=== PATIENT | female | born 1970 | race Caucasian/White ===

== ENCOUNTER 2020-05-09 11:47 | Day surgery (SDC) | payer MEDICAID ==
[~2020-05-09] VITALS: Ht 175.3 cm; Wt 128.2 kg
[~2020-05-09 11:47] MED LIST: SODIUM CHLORIDE 0.9% 1,000 ML IV ONE; SODIUM CHLORIDE 0.9% 1,000 ML ONE
[2020-05-09 12:30] LABS: COVID AG,FIA SOURCE NASOPHARYNGEAL
[2020-05-09] MEDS ORDERED: ESCI20TA87 PO (15:02)
[2020-05-09] MEDS ORDERED: MAGOX PO (15:02)
[2020-05-09] MEDS ORDERED: CHOL200016 PO (15:02)
[2020-05-09] MEDS ORDERED: CEFX2I IM (15:02)
[2020-05-09] MEDS ORDERED: VITA15LO2 PO (15:02)
[2020-05-09] MEDS ORDERED: BUSP10TA23 PO (15:02)
[2020-05-09] MEDS ORDERED: BIOT1TAB6 PO (15:02)
[2020-05-09] MEDS ORDERED: TURM500C4 PO (15:02)
[2020-05-09] MEDS ORDERED: NICO-800 TD (15:02)
[2020-05-09] MEDS ORDERED: CIDE300T3 PO (15:02)
[2020-05-09] MEDS ORDERED: DICL25TA9 PO (15:02)
[2020-05-09] MEDS ORDERED: VITA1TAB22 PO (15:02)
[2020-05-09] MEDS ORDERED: MILK175C5 PO (15:02)
[2020-05-09] MEDS ORDERED: IBUP-2070 PO (15:02)
[2020-05-09] MEDS ORDERED: MULT-298 PO (15:02)
[2020-05-09] MEDS ORDERED: TRAM50TA4 PO (15:02)
== END 2020-05-09 15:30 | disposition home or self-care (01) ==
LOC: SURGERY 11:47
PROVIDERS: ATTEND Internal Medicine Gastroenterology
DX: K57.30 Diverticulosis of large intestine without perforation or abscess without bleeding (principal); F41.9 Anxiety disorder, unspecified; M19.90 Unspecified osteoarthritis, unspecified site; E66.9 Obesity, unspecified; I10 Essential (primary) hypertension; G89.29 Other chronic pain
CPT/HCPCS: 45378; 84703; 87426; 93005; C9803; J7030